=== PATIENT | female | born 1955 | race Caucasian/White ===

== ENCOUNTER → 2016-05-12 | Outpatient (CLI) | payer MEDICAID ==
--- NOTE | 2016-05-13 13:58 | MM ---
Reason for exam: screening (asymptomatic). Last mammogram was performed 1 year and 2 months ago. History: Patient is postmenopausal and is nulliparous. Physical Findings: A clinical breast exam by your physician is recommended on an annual basis and results should be correlated with mammographic findings. MG 3D Screening Mammo W/Cad Bilateral CC and MLO view(s) were taken. Prior study comparison: March 16, 2015, bilateral MG 3d screening mammo w/cad. February 24, 2014, bilateral MG screening mammo w CAD. No significant changes when compared with prior studies. ASSESSMENT: Benign, BI-RAD 2 RECOMMENDATION: Routine screening mammogram of both breasts in 1 year.
== END | disposition home or self-care (01) ==
LOC: RADMAMWWP 07:40
PROVIDERS: ATTEND Obstetrics & Gynecology
DX: Z12.31 Encounter for screening mammogram for malignant neoplasm of breast (principal)
CPT/HCPCS: 77063; G0202

== ENCOUNTER → 2016-11-20 | Outpatient (CLI) | payer MEDICAID ==
[2016-11-20 14:51] LABS: Anion Gap 10 mmol/L; Blood Urea Nitrogen 18 mg/dL (7-17); Calcium 9.8 mg/dL (8.4-10.2); Carbon Dioxide 29 mmol/L (22-30); Chloride 101 mmol/L (98-107); Glucose 88 mg/dL (74-99); Non-African American GFR(MDRD) >60 (>60 ml/min/1.73 sqM); Potassium 4.8 mmol/L (3.5-5.1); Sodium 140 mmol/L (137-145)
[2016-11-21 12:56] LABS: Hemoglobin A1C 6.7 % (4.2-6.1)
== END | disposition home or self-care (01) ==
LOC: LABWHC1 14:08
PROVIDERS: ATTEND Family Medicine
DX: E11.65 Type 2 diabetes mellitus with hyperglycemia (principal)
CPT/HCPCS: 36415; 80048; 83036

== ENCOUNTER → 2017-07-21 | Outpatient (CLI) | payer MEDICAID ==
[2017-07-21 15:48] VITALS: BP 165/75; PULSE 76; TEMP 97.4; BMI 30.9
--- NOTE | 2017-07-21 16:02 | P.HPOB ---
History of Present Illness H&P Date: 07/21/17 Chief Complaint: The patient is here for her routine annual gynecologic exam. This is a 61-year-old G0 with an LMP of 2007. The patient is here to establish with this office. She is without gynecologic complaints and denies any post menopausal bleeding. Review of Systems The patient's weight has been stable over the last year. She denies respiratory , cardiac, or G.I. problems. 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 Past Surgical History: Tonsillectomy Additional Past Surgical History / Comment(s): Colonoscopy 2009. Past Psychological History: No Psychological Hx Reported Additional History: The patient a single and has not been sexually active. She works at [employer]. - Past Family History Father Family Medical History: Diabetes Mellitus Medications and Allergies Home Medications Medication Instructions Recorded Confirmed Type sitaGLIPtin PHOS/metFORMIN HCL 1 each PO BID 06/06/14 06/07/14 History [Janumet 50-500 mg Tablet] Acetaminophen-Codeine 300-30mg 1 tab PO Q4H PRN #10 tablet 06/07/14 Rx [Tylenol #3] Aspirin [Adult Low Dose Aspirin EC] tab PO DAILY 07/21/17 History Calcium Carb-Vit D 250Mg-125Un tab PO DAILY 07/21/17 History [Oscal 250+D] Calcium Carb-Vit D 500Mg-200Un tab PO DAILY 07/21/17 History [Oscal 500+D] Glucosam/Chond/Hyalu/Cf Borate tab PO DAILY 07/21/17 History [Move Free Joint Health Tablet] Lisinopril [Zestril] tab PO DAILY 07/21/17 History Multivitamin [Multivitamins Adult tab PO DAILY 07/21/17 History Gummies] Simvastatin [Zocor] tab PO HS 07/21/17 History Vit A/Vit C/Vit E/Zinc/Copper cap PO BID 07/21/17 History [ICAPS SOFTGEL] glipiZIDE [Glucotrol] tab PO BID 07/21/17 History metFORMIN HCL tab PO BID 07/21/17 History sitaGLIPtin [Januvia] tab PO DAILY 07/21/17 History Allergies Allergy/AdvReac Type Severity Reaction Status Date / Time Penicillins Allergy Rash/Hives Verified 07/21/17 15:24 Exam - Vital Signs Vital signs: Blood pressure 165/75, repeat blood pressure 144/70, height 5'2", weight 169 pounds, BMI 30.9, temperature 97.4, pulse 76. This is a well-developed well-nourished white female who is alert and oriented times 3 in no acute distress. HEENT: Within normal limits. NECK: Supple without mass or thyromegaly. CHEST AND LUNGS: Clear to auscultation. HEART: Regular rate and rhythm. BREASTS: Are without mass or discharge. AXILLARY EXAM: Negative for adenopathy. BACK: Negative for CVA tenderness. ABDOMEN: Soft, nontender, without palpable masses. PELVIC EXAM: Normal external genitalia with mild atrophy. Cervix and vagina appear normal with mild atrophy. There is no unusual discharge. There is no evidence of prolapse. The uterus is midposition, nongravid size and nontender. There are no palpable adnexal masses or tenderness. RECTAL EXAM: rectovaginal exam is negative for mass or tenderness and is negative for occult blood. EXTREMITIES: Nontender. IMPRESSION: 1. 61-year-old menopausal female with normal gynecologic exam. 2. Elevated blood pressure without history of chronic hypertension. PLAN: 1. Pap smear was performed. 2. Self breast awareness was discussed. 3. Screening mammogram is due and in order slip was given to the patient for this. 4. Her elevated blood pressure was discussed with the patient. I have recommended self blood pressure testing on a regular basis and she is to follow up with Dr. Grove for blood pressure elevations. 5. Osteoporosis prevention was discussed. She has had normal bone density testing done about 3 to 5 years ago per the patient. I have recommended repeating the bone density test approximately 5-6 years after her last one. 6. She will return in one year.
== END | disposition home or self-care (01) ==
LOC: WWCWWP 14:28
PROVIDERS: ATTEND Obstetrics & Gynecology
DX: Z01.419 Encounter for gynecological examination (general) (routine) without abnormal findings (principal); Z53.9 Procedure and treatment not carried out, unspecified reason

== ENCOUNTER → 2017-09-24 | Outpatient (CLI) | payer MEDICAID ==
--- NOTE | 2017-09-25 07:23 | MM ---
Reason for exam: screening (asymptomatic). Last mammogram was performed 1 year and 4 months ago. History: Patient is postmenopausal and is nulliparous. Physical Findings: A clinical breast exam by your physician is recommended on an annual basis and results should be correlated with mammographic findings. MG 3D Screening Mammo W/Cad Bilateral CC and MLO view(s) were taken. Prior study comparison: May 12, 2016, bilateral MG 3d screening mammo w/cad. March 16, 2015, bilateral MG 3d screening mammo w/cad. The breast tissue is heterogeneously dense. This may lower the sensitivity of mammography. Benign appearing bilateral calcifications. No suspicious abnormality. No significant changes when compared with prior studies. ASSESSMENT: Benign, BI-RAD 2 RECOMMENDATION: Routine screening mammogram of both breasts in 1 year.
== END | disposition home or self-care (01) ==
LOC: RADMAMWWP 08-24 09:12
PROVIDERS: ATTEND Obstetrics & Gynecology
DX: Z12.31 Encounter for screening mammogram for malignant neoplasm of breast (principal)
CPT/HCPCS: 77063; 77067

== ENCOUNTER → 2018-09-07 | Outpatient (CLI) | payer MEDICAID ==
[2018-09-07 08:04] VITALS: BP 160/80; PULSE 86; RESP 16; TEMP 98; BMI 32.7
--- NOTE | 2018-09-07 08:39 | P.HPOB ---
History of Present Illness H&P Date: 09/07/18 Chief Complaint: The patient is here for her routine gynecologic exam. This is a 62-year-old G0 with an LMP of 2007. The patient is without gynecologic complaints and denies any postmenopausal bleeding. Review of Systems The patient has gained 10 pounds over the last year. She denies respiratory, cardiac, or G.I. problems. Past Medical History Past Medical History: Diabetes Mellitus, Hyperlipidemia, Hypertension Additional Past Medical History / Comment(s): Type II diabetes. Past [employer] history: she has no history of STDs. History of Any Multi-Drug Resistant Organisms: None Reported Past Surgical History: Tonsillectomy Additional Past Surgical History / Comment(s): Colonoscopy 2009. Past Psychological History: No Psychological Hx Reported Smoking Status: Never smoker Past Alcohol Use History: None Reported Past Drug Use History: None Reported Additional History: The patient is single and has not been sexually active. She works at [employer] at the [employer]. - Past Family History Father Family Medical History: Diabetes Mellitus Mother Family Medical History: Cancer Additional Family Medical History / Comment(s): Breast cancer. Medications and Allergies Home Medications Medication Instructions Recorded Confirmed Type Aspirin [Adult Low Dose Aspirin EC] 1 tab PO DAILY 07/21/17 09/07/18 History Calcium Carb-Vit D 500Mg-200Un 1 tab PO DAILY 07/21/17 09/07/18 History [Oscal 500+D] Glucosam/Chond/Hyalu/Cf Borate 1 tab PO DAILY 07/21/17 09/07/18 History [Move Free Joint Health Tablet] Lisinopril [Zestril] 1 tab PO DAILY 07/21/17 09/07/18 History Multivitamin [Multivitamins Adult 1 tab PO DAILY 07/21/17 09/07/18 History Gummies] Simvastatin [Zocor] 1 tab PO HS 07/21/17 09/07/18 History Vit A/Vit C/Vit E/Zinc/Copper 1 cap PO BID 07/21/17 09/07/18 History [ICAPS SOFTGEL] glipiZIDE [Glucotrol] 1 tab PO BID 07/21/17 09/07/18 History metFORMIN HCL 1 tab PO BID 07/21/17 09/07/18 History Allergies Allergy/AdvReac Type Severity Reaction Status Date / Time Penicillins Allergy Rash/Hives Verified 09/07/18 08:03 Exam Vital Signs Temp Pulse Resp BP Pulse Ox 09/07/18 07:57 98.0 F 86 16 160/80 94 L Intake and Output 09/06/18 09/07/18 09/07/18 22:59 06:59 14:59 Other: Weight 81.193 kg Height 5'2", weight 179 pounds, BMI 32.7. This is a well-developed well-nourished white female who is alert and oriented times 3 in no acute distress. HEENT: Within normal limits. NECK: Supple without mass or thyromegaly. CHEST AND LUNGS: Clear to auscultation. HEART: Regular rate and rhythm. BREASTS: Are without mass or discharge. AXILLARY EXAM: Negative for adenopathy. BACK: Negative for CVA tenderness. ABDOMEN: Soft, nontender, without palpable masses. PELVIC EXAM: Normal external genitalia with mild atrophy. Cervix and vagina appear normal with mild atrophy. There is no unusual discharge. There is no evidence of prolapse. The uterus is midposition, nongravid size and nontender. There are no palpable adnexal masses or tenderness. RECTAL EXAM: rectovaginal exam is negative for mass or tenderness and is negative for occult blood. EXTREMITIES: Nontender. IMPRESSION: 1. 62-year-old menopausal female with normal gynecologic exam. 2. Elevated blood pressure. The patient states she has not taken her lisinopril today. PLAN: 1. Pap smear was deferred since she had a normal one on 07/21/2017. 2. Self breast awareness was discussed with the patient. 3. Screening mammogram will be due after 09/24/2017. The order slip was given to the patient for this. 4. Osteoporosis prevention was discussed. I have stressed the importance of adequate calcium, vitamin D and regular exercise. Recommended amounts of calcium and vitamin D were also discussed. Her last test was more than 5 years ago. I have recommended that she redo the bone density testing and the order slip was given to the patient for this. She will try to have this done on the day of her mammogram. 5. I recommended that she check your blood pressure on her own on a regular basis. She is to follow up with Dr. Grove for blood pressure elevations. 6.She was advised to return in one year for her annual well woman exam.
== END | disposition home or self-care (01) ==
LOC: WWCWWP 07:49
PROVIDERS: ATTEND Obstetrics & Gynecology
DX: Z53.9 Procedure and treatment not carried out, unspecified reason (principal)

== ENCOUNTER → 2018-10-05 | Outpatient (CLI) | payer MEDICAID ==
--- NOTE | 2018-10-05 11:57 | BD ---
EXAMINATION TYPE: Axial Bone Density DATE OF EXAM: 10/05/2018 COMPARISON: 2008 CLINICAL HISTORY: post menopausal, Z 78.0 Height: 5'3 Weight: 177 FRAX RISK QUESTIONS: Secondary Osteoporosis: RISK FACTORS HISTORY OF: Postmenopausal woman: y MEDICATIONS: Additional Medications: cholesterol, diabetes 2 Additional History: EXAM MEASUREMENTS: Bone mineral densitometry was performed using the [employer] System. Bone mineral density as measured about the Lumbar spine is: ----- L1-L4(G/cm2): 1.258 T Score Values are as follows: ----- L2: 0.0 ----- L3: 1.6 ----- L4: 1.2 ----- L1-L4: 0.6 Bone mineral density has: Increased 7.5% since study of: 01/22/2009 Bone mineral density about the R hip (g/cm2): 0.923 Bone mineral density about the L hip (g/cm2): 0.945 T Score values are as follows: -----R Neck: -0.8 -----L Neck: -0.7 -----R Total: 0.7 -----L Total: 0.2 Bone mineral density has: Increased 1.7% since study of: 01/22/2009 IMPRESSION: Normal (Values between +1 and -1 indicate normal bone mass). Consider repeating this study in 5 year s or sooner if there is some new clinical indication. NOTE: T-SCORE=SD OF THE YOUNG ADULT MEAN.
--- NOTE | 2018-10-05 18:01 | P.PN ---
Progress Note - Text Progress Note Date: 10/05/18 OUTPATIENT FOLLOW-UP NOTE TEST(S)/RESULTS: normal bone density test on 10/05/2018. METHOD OF NOTIFICATION: patient was notified by phone. PATIENT COMMENTS: the patient did have a mammogram today as well. DIAGNOSIS: normal bone density test. Mammogram results are pending. DISCUSSION: I have stressed the importance of continuing to get adequate calcium, vitamin D, and regular exercise. PLAN: repeat bone density testing in 6 years. Await mammogram results. She was advised to return in one year for her annual well woman exam.
--- NOTE | 2018-10-06 09:29 | MM ---
Reason for exam: screening (asymptomatic). Last mammogram was performed 1 year ago. History: Patient is postmenopausal and is nulliparous. Family history of breast cancer in mother at age 91. Physical Findings: A clinical breast exam by your physician is recommended on an annual basis and results should be correlated with mammographic findings. MG 3D Screening Mammo W/Cad Bilateral CC and MLO view(s) were taken. Prior study comparison: September 24, 2017, bilateral MG 3d screening mammo w/cad. May 12, 2016, bilateral MG 3d screening mammo w/cad. The breast tissue is heterogeneously dense. This may lower the sensitivity of mammography. No suspicious abnormality on the right. Left upper outer quadrant architectural distortion with central lucency appears as a scar or fat necrosis. Work up will be performed given no history provided of prior procedure or trauma. ASSESSMENT: Incomplete: need additional imaging evaluation, BI-RAD 0 RECOMMENDATION: Ultrasound of the left breast. (upper outer quadrant) [facility] will attempt to contact patient to return for ultrasound.
== END | disposition home or self-care (01) ==
LOC: RADMAMWWP 07:39
PROVIDERS: ATTEND Obstetrics & Gynecology
DX: Z12.31 Encounter for screening mammogram for malignant neoplasm of breast (principal); Z78.0 Asymptomatic menopausal state
CPT/HCPCS: 77063; 77067; 77080

== ENCOUNTER → 2018-10-07 | Outpatient (CLI) | payer MEDICAID ==
--- NOTE | 2018-10-07 14:50 | USB ---
Reason for exam: additional evaluation requested from abnormal screening. History: Patient is postmenopausal and is nulliparous. Family history of breast cancer in mother at age 91. Physical Findings: Nurse did not find any significant physical abnormalities on exam. US Breast Workup Limited LT Left limited breast ultrasound including focal area of concern, retroareolar and axilla demonstrates a 0.4 x 0.4 x 0.2cm oval, cystic lesion at 1 o'clock and a 1.9 x 2.7 x 1.2cm oval, axilla node, benign lymph node. These results were verbally communicated with the patient and result sheet given to the patient on 10/07/18. ASSESSMENT: Benign, BI-RAD 2 RECOMMENDATION: Return to routine screening mammogram schedule for both breasts.
== END | disposition home or self-care (01) ==
LOC: RADUSWWP 13:34
PROVIDERS: ATTEND Obstetrics & Gynecology
DX: R92.8 Other abnormal and inconclusive findings on diagnostic imaging of breast (principal)

== ENCOUNTER → 2019-03-30 | Outpatient (CLI) | payer MEDICAID ==
--- NOTE | 2019-03-30 13:06 | XR ---
EXAMINATION TYPE: XR shoulder complete LT DATE OF EXAM: 03/30/2019 CLINICAL HISTORY: Left shoulder pain with no known injury TECHNIQUE: 2 views of the left shoulder are obtained. COMPARISON: None. FINDINGS: There is no acute fracture/dislocation evident in the left shoulder. The acromioclavicula r and glenohumeral joint spaces appear aligned. Mild acromioclavicular arthropathy is seen with small marginal osteophytes. The visualized ribs are intact and unremarkable. IMPRESSION: There is no acute fracture or dislocation in the left shoulder. Mild acromioclavicular a rthropathy.
== END | disposition home or self-care (01) ==
LOC: RADXRMAIN 12:17
PROVIDERS: ATTEND Family Medicine
DX: M19.012 Primary osteoarthritis, left shoulder (principal)

== ENCOUNTER → 2019-10-25 | Outpatient (CLI) | payer MEDICAID ==
[2019-10-25 12:58] VITALS: BP 149/76; PULSE 70; RESP 18; TEMP 98.2
--- NOTE | 2019-10-25 13:37 | P.HPOB ---
History of Present Illness H&P Date: 10/25/19 Chief Complaint: The patient is here for her routine gynecologic exam and ma mmogram. This is a 63-year-old G0 with an LMP of 2007. The patient is without gynecologic complaints and denies any postmenopausal bleeding. Review of Systems The patient has lost 15 pounds over the last year. She states she has lost weight with dietary changes that she has made to help control her diabetes. She denies respiratory, cardiac, or G.I. problems. Past Medical History Past Medical History: Diabetes Mellitus, Hyperlipidemia, Hypertension Additional Past Medical History / Comment(s): Type II diabetes. 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 History of Any Multi-Drug Resistant Organisms: None Reported Past Surgical History: Tonsillectomy Additional Past Surgical History / Comment(s): Colonoscopy 2009. Past Psychological History: No Psychological Hx Reported Smoking Status: Never smoker Past Alcohol Use History: None Reported Past Drug Use History: None Reported Additional History: The patient is single and has not been sexually active. She works at [employer] at the [employer]. - Past Family History Father Family Medical History: Diabetes Mellitus Mother Family Medical History: Cancer Additional Family Medical History / Comment(s): Breast cancer. Medications and Allergies Home Medications Medication Instructions Recorded Confirmed Type Calcium Carb-Vit D 500Mg-200Un 1 tab PO DAILY 07/21/17 10/25/19 History [Oscal 500+D] Glucosam/Chond/Hyalu/Cf Borate 1 tab PO DAILY 07/21/17 10/25/19 History [Move Free Joint Health Tablet] Multivitamin [Multivitamins Adult 1 tab PO DAILY 07/21/17 10/25/19 History Gummies] Simvastatin [Zocor] 1 tab PO HS 07/21/17 10/25/19 History Vit A/Vit C/Vit E/Zinc/Copper 1 cap PO BID 07/21/17 10/25/19 History [ICAPS SOFTGEL] glipiZIDE [Glucotrol] 1 tab PO BID 07/21/17 10/25/19 History lisinopriL [Zestril] 1 tab PO DAILY 07/21/17 10/25/19 History metFORMIN HCL 1 tab PO BID 07/21/17 10/25/19 History Aspirin 81 mg PO DAILY 10/25/19 10/25/19 History Allergies Allergy/AdvReac Type Severity Reaction Status Date / Time Penicillins Allergy Rash/Hives Verified 10/25/19 12:51 Exam Vital Signs Temp Pulse Resp BP Pulse Ox 10/25/19 12:53 98.2 F 70 18 149/76 99 Intake and Output 10/24/19 10/25/19 10/25/19 22:59 06:59 14:59 Other: Weight 74.389 kg Height 5 feet 3 inches, weight 164 pounds, BMI 29.1. This is a well-developed well-nourished white female who is alert and oriented times 3 in no acute distress. HEENT: Within normal limits. NECK: Supple without mass or thyromegaly. CHEST AND LUNGS: Clear to auscultation. HEART: Regular rate and rhythm. BREASTS: Are without mass or discharge. AXILLARY EXAM: Negative for adenopathy. BACK: Negative for CVA tenderness. ABDOMEN: Soft, nontender, without palpable masses. PELVIC EXAM: Normal external genitalia with mild to moderate atrophy. Cervix and vagina appear normal with mild to moderate atrophy. There is no unusual discharge. There is no evidence of prolapse. The uterus is midposition, nongravid size and nontender. There are no palpable adnexal masses or tenderness. RECTAL EXAM: Rectovaginal exam is negative for mass or tenderness and is negative for occult blood. EXTREMITIES: Nontender. IMPRESSION: 1. 63-year-old menopausal female with normal gynecologic exam. PLAN: 1. Pap smear was performed. 2. Self breast awareness was discussed with the patient. 3. Screening mammogram will be done today. 4. Osteoporosis prevention was discussed. I have stressed the importance of adequate calcium, vitamin D and regular exercise. The patient states she has the sheet explaining how much calcium and vitamin D are recommended. Bone density test will be done in approximately 4-5 years. She had a normal one done last year. 5. I have recommended screening colonoscopy since it has been about 10 years since her last one. She will follow up with her PCP to arrange for this. 6. She was advised to return in one year for her annual well woman exam.
--- NOTE | 2019-10-27 09:22 | MM ---
Reason for exam: screening (asymptomatic). Last mammogram was performed 1 year and 1 month ago. History: Patient is postmenopausal and is nulliparous. Family history of breast cancer in mother at age 91. Physical Findings: A clinical breast exam by your physician is recommended on an annual basis and results should be correlated with mammographic findings. MG 3D Screening Mammo W/Cad Bilateral CC and MLO view(s) were taken. Prior study comparison: October 05, 2018, bilateral MG 3d screening mammo w/cad. September 24, 2017, bilateral MG 3d screening mammo w/cad. There are scattered fibroglandular densities. No significant changes when compared with prior studies. ASSESSMENT: Benign, BI-RAD 2 RECOMMENDATION: Routine screening mammogram of both breasts in 1 year.
== END | disposition home or self-care (01) ==
LOC: WWCWWP 12:37
PROVIDERS: ATTEND Obstetrics & Gynecology
DX: Z12.31 Encounter for screening mammogram for malignant neoplasm of breast (principal)
CPT/HCPCS: 77063; 77067

== ENCOUNTER 2020-04-10 07:04 | Day surgery (SDC) | payer MEDICAID ==
[2020-04-05 15:04] VITALS: BMI 30.2
[~2020-04-10 07:04] MED LIST: LACTATED RINGERS 1,000 ML IV SCH
[2020-04-10 07:29] VITALS: RESP 16; TEMP 98.2
[2020-04-10] MEDS ORDERED: LIDOCAINE 1% (10MG/ML) FOR IV START INTRADERMA ONE (07:40)
[2020-04-10 07:43] LABS: Glucose,Whole Blood 171 mg/dL (75-99)
[2020-04-10] MEDS ORDERED: PROPOFOL 10 MG/ML 20 ML VIAL IV ONE (08:12)
--- NOTE | 2020-04-10 08:14 | P.GSHP ---
History of Present Illness H&P Date: 04/10/20 Chief Complaint: Positive cologuard Patient here today for colonoscopy. She without complaints. No rectal bleeding or melena. Patient had a positive cologuard test however. No family history of colon cancer. Last colonoscopy 14 years ago. Past Medical History Past Medical History: Diabetes Mellitus, Hyperlipidemia, Hypertension Additional Past Medical History / Comment(s): Type II diabetes. History of Any Multi-Drug Resistant Organisms: None Reported Past Surgical History: Tonsillectomy Additional Past Surgical History / Comment(s): Colonoscopy 2009. Past Anesthesia/Blood Transfusion Reactions: No Reported Reaction Smoking Status: Never smoker - Past Family History Father Family Medical History: Diabetes Mellitus Mother Family Medical History: Cancer Additional Family Medical History / Comment(s): Breast cancer. Medications and Allergies Home Medications Medication Instructions Recorded Confirmed Type Calcium Carb-Vit D 500Mg-5Mcg 1 tab PO DAILY 07/21/17 04/10/20 History [Oscal 500+D] Glucosam/Chond/Hyalu/Cf Borate 1 tab PO DAILY 07/21/17 04/10/20 History [Move Free Joint Health Tablet] Multivitamin [Multivitamins Adult 1 tab PO DAILY 07/21/17 04/10/20 History Gummies] Simvastatin [Zocor] 10 mg PO HS 07/21/17 04/10/20 History Vit A/Vit C/Vit E/Zinc/Copper 1 cap PO BID 07/21/17 04/10/20 History [ICAPS SOFTGEL] glipiZIDE [Glucotrol] 5 mg PO BID 07/21/17 04/10/20 History lisinopriL [Zestril] 5 mg PO DAILY 07/21/17 04/10/20 History metFORMIN HCL 1,000 mg PO BID 07/21/17 04/10/20 History Aspirin 81 mg PO DAILY 10/25/19 04/10/20 History Allergies Allergy/AdvReac Type Severity Reaction Status Date / Time Penicillins Allergy Rash/Hives Verified 04/10/20 07:22 Surgical - Exam Vital Signs Temp Pulse Resp BP Pulse Ox 98.2 F 90 16 164/75 95 04/10/20 07:19 04/10/20 07:19 04/10/20 07:19 04/10/20 07:19 04/10/20 07:19 Physical exam: General: Well-developed, well-nourished HEENT: Normocephalic, sclerae nonicteric Abdomen: Nontender, nondistended Extremities: No edema Neuro: Alert and oriented Results - Labs Abnormal Lab Results - Last 24 Hours (Table) 04/10/20 Range/Units 07:37 POC Glucose (mg/dL) 171 H (75-99) mg/dL Assessment and Plan (1) Positive colorectal cancer screening using Cologuard test Narrative/Plan: Will proceed with colonoscopy Current Visit: Yes Status: Acute Code(s): R19.5 - OTHER FECAL ABNORMALITIES SNOMED Code(s): 056943725
--- NOTE | 2020-04-10 08:30 | P.PCN ---
Date of Procedure: 04/10/20 Procedure(s) Performed: PREOPERATIVE DIAGNOSIS: Positive cologuard POSTOPERATIVE DIAGNOSIS: Diverticulosis PROCEDURE: Colonoscopy ANESTHESIA: MAC SURGEON: Joselo Randhawa M.D. SPECIMENS: None ENDOSCOPIC PROCEDURE: The patient was placed on the endoscopy table in the left decubitus position. The Olympus colonoscope was inserted into the anus and passed under direct visualization to the base of the cecum. The appendiceal orifice was visualized. From that point the scope was slowly withdrawn inspecting all surfaces carefully. There were no neoplastic inflammatory or polypoid lesions throughout the cecum, ascending, transverse, descending, sigmoid and rectum. There was mild to moderate scattered diverticulosis noted throughout the colon. Digital rectal examination was normal. The patient was taken to the recovery room in stable condition per anesthesia guidelines. RECOMMENDATIONS: Resume diet. Follow-up colonoscopy in years.
[2020-04-10 08:47] VITALS: BP 147/66; PULSE 56
== END 2020-04-10 09:06 | disposition home or self-care (01) ==
LOC: ORWHC2ENDO 07:04
PROVIDERS: ATTEND Surgery
DX: K57.30 Diverticulosis of large intestine without perforation or abscess without bleeding (principal); E11.9 Type 2 diabetes mellitus without complications; E78.5 Hyperlipidemia, unspecified; I10 Essential (primary) hypertension; Z79.84 Long term (current) use of oral hypoglycemic drugs; Z79.82 Long term (current) use of aspirin; Z79.899 Other long term (current) drug therapy; Z88.0 Allergy status to penicillin; Z90.89 Acquired absence of other organs; Z98.890 Other specified postprocedural states; Z83.3 Family history of diabetes mellitus; Z80.3 Family history of malignant neoplasm of breast
CPT/HCPCS: 45378; J2704

== ENCOUNTER → 2020-08-25 | Outpatient (CLI) | payer MEDICAID ==
[2020-08-25 17:07] LABS: Basophils # (A) 0.05 X 10*3/uL (0.00-0.10); Basophils % (A) 1.1 %; Eosinophils # (A) 0.27 X 10*3/uL (0.04-0.35); HCT 39.7 % (37.2-46.3); HGB 12.7 g/dL (12.0-15.0); Lymphocytes # (A) 1.31 X 10*3/uL (0.90-5.00); Lymphocytes % (A) 29.2 %; MCH 28.9 pg (27.0-32.0); MCV 90.4 fL (80.0-97.0); Mean Platelet Volume 9.8 fL (9.5-12.2); Monocytes # (A) 0.37 X 10*3/uL (0.20-1.00); Monocytes % (A) 8.3 %; Neutrophils # (A) 2.47 X 10*3/uL (1.80-7.70); Neutrophils % (A) 55.2 %; Platelet Count 320 X 10*3/uL (140-440); RBC 4.39 X 10*6/uL (4.10-5.20); RDW 12.7 % (11.5-14.5); WBC 4.48 X 10*3/uL (4.50-10.00)
[2020-08-25 17:10] LABS: African American GFR (CKD) 78.9 (60.0-200.0); Albumin 4.4 g/dL (3.80-4.90); Albumin/Globulin Ratio 1.91 (1.60-3.17); Anion Gap 6.6 mmol/L (4.00-12.00); Calcium 9.4 mg/dL (8.7-10.3); Carbon Dioxide 30.4 mmol/L (21.6-31.8); Chol/HDL Ratio 2.81; Globulin 2.3 g/dL (1.6-3.3); Potassium 5.2 mmol/L (3.5-5.5); Total Bilirubin 0.5 mg/dL (0.3-1.2); Total Protein 6.7 g/dL (6.2-8.2)
[2020-08-25 21:29] LABS: Hemoglobin A1C 7.2 % (4.0-6.0)
== END | disposition home or self-care (01) ==
LOC: LABWHC1 08:59
PROVIDERS: ATTEND Family Medicine
DX: Z00.00 Encounter for general adult medical examination without abnormal findings (principal); E11.65 Type 2 diabetes mellitus with hyperglycemia
CPT/HCPCS: 36415; 80053; 80061; 83036; 85025

== ENCOUNTER → 2020-11-06 | Outpatient (CLI) | payer MEDICAID ==
[2020-11-06 16:31] VITALS: BP 173/71; PULSE 67; RESP 18; TEMP 97.9
--- NOTE | 2020-11-06 17:21 | P.HPOB ---
History of Present Illness H&P Date: 11/06/20 Chief Complaint: The patient is here for her routine gynecologic exam and ma mmogram. This is a 64-year-old G0 with an LMP of 2007. The patient is without gynecologic complaints and denies any postmenopausal bleeding. Review of Systems The patient has lost 5 pounds over the last year. She denies respiratory, cardiac, or G.I. problems. Past Medical History Past Medical History: Diabetes Mellitus, Hyperlipidemia, Hypertension Additional Past Medical History / Comment(s): Type II diabetes. 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 History of Any Multi-Drug Resistant Organisms: None Reported Past Surgical History: Tonsillectomy Additional Past Surgical History / Comment(s): Colonoscopy 2020(next after 10yr). Past Anesthesia/Blood Transfusion Reactions: No Reported Reaction Past Psychological History: No Psychological Hx Reported Smoking Status: Never smoker Past Alcohol Use History: None Reported Past Drug Use History: None Reported Additional History: The patient is single and is not seeing anybody at this time. She states she has not been sexually active. She works at [email or web address] at the [employer]. - Past Family History Father Family Medical History: Diabetes Mellitus Mother Family Medical History: Cancer Additional Family Medical History / Comment(s): Breast cancer. Medications and Allergies Home Medications and Allergies Comment(s): She also states she is on lisinopril, 1 tablet daily. Home Medications Medication Instructions Recorded Confirmed Type Calcium Carb-Vit D 500Mg-5Mcg 1 tab PO DAILY 07/21/17 11/06/20 History [Oscal 500+D] Glucosam/Chond/Hyalu/Cf Borate 1 tab PO DAILY 07/21/17 11/06/20 History [Move Free Joint Health Tablet] Multivitamin [Multivitamins Adult 1 tab PO DAILY 07/21/17 11/06/20 History Gummies] Simvastatin [Zocor] 10 mg PO HS 07/21/17 11/06/20 History Vit A/Vit C/Vit E/Zinc/Copper 1 cap PO BID 07/21/17 11/06/20 History [ICAPS SOFTGEL] glipiZIDE [Glucotrol] 5 mg PO BID 07/21/17 11/06/20 History lisinopriL [Zestril] 5 mg PO DAILY 07/21/17 11/06/20 History metFORMIN HCL [Glucophage] 1,000 mg PO BID 07/21/17 11/06/20 History Aspirin 81 mg PO DAILY 10/25/19 11/06/20 History Cinnamon Bark [Cinnamon] 2,000 mg PO DAILY 11/06/20 11/06/20 History Allergies Allergy/AdvReac Type Severity Reaction Status Date / Time Penicillins Allergy Rash/Hives Verified 11/06/20 16:28 Exam Vital Signs Temp Pulse Resp BP Pulse Ox 11/06/20 16:28 97.9 F 67 18 173/71 99 Intake and Output 11/06/20 11/06/20 11/06/20 06:59 14:59 22:59 Other: Weight 72.121 kg Height 5 feet 3-1/2 inches, weight 159 pounds, BMI 27.7. This is a well-developed well-nourished white female who is alert and oriented times 3 in no acute distress. HEENT: Within normal limits. NECK: Supple without mass or thyromegaly. CHEST AND LUNGS: Clear to auscultation. HEART: Regular rate and rhythm. BREASTS: Are without mass or discharge. AXILLARY EXAM: Negative for adenopathy. BACK: Negative for CVA tenderness. ABDOMEN: Soft, nontender, without palpable masses. PELVIC EXAM: Normal external genitalia with mild atrophy. Cervix and vagina appear normal with mild atrophy. There is no unusual discharge. There is no evidence of prolapse. The uterus is midposition, nongravid size and nontender. There are no palpable adnexal masses or tenderness. RECTAL EXAM: Rectovaginal exam is negative for mass or tenderness and is negative for occult blood. EXTREMITIES: Nontender. IMPRESSION: 1. 64-year-old menopausal female with normal gynecologic exam. 2. Elevated blood pressure. The patient states she has not been diagnosed with hypertension. She states she is on lisinopril for an unknown indication. PLAN: 1. Pap smear was deferred since she had a normal one on 10/25/2019. 2. Self breast awareness was discussed with the patient. We have also discussed symptoms associated with inflammatory breast cancer. 3. Screening mammogram has been done today. 4. Osteoporosis prevention was discussed. I have stressed the importance of adequate calcium, vitamin D and regular exercise. Recommended amounts of calcium and vitamin D were also discussed. 5. We have discussed her elevated blood pressure today. I have recommended that she check her own blood pressures on a regular basis and follow-up with her PCP for blood pressure elevations. I have also recommended that she discuss the indication for her lisinopril and Zocor. She states she is unaware of the diagnosis of hypertension or elevated cholesterol. She understands that poorly controlled high blood pressure, especially with the diagnosis of type 2 diabetes, can greatly increase the risk for cardiovascular disease, NV and stroke. 6. She has completed her Covid vaccination series. 7. She was advised to return in one year for her annual well woman exam.
--- NOTE | 2020-11-08 12:09 | MM ---
Reason for exam: screening (asymptomatic). Last mammogram was performed 1 year ago. History: Patient is postmenopausal and is nulliparous. Family history of breast cancer in mother at age 91. Physical Findings: A clinical breast exam by your physician is recommended on an annual basis and results should be correlated with mammographic findings. MG 3D Screening Mammo W/Cad Bilateral CC and MLO view(s) were taken. Prior study comparison: October 25, 2019, bilateral MG 3d screening mammo w/cad. October 05, 2018, bilateral MG 3d screening mammo w/cad. September 24, 2017, bilateral MG 3d screening mammo w/cad. The breast tissue is heterogeneously dense. This may lower the sensitivity of mammography. No significant changes when compared with prior studies. ASSESSMENT: Benign, BI-RAD 2 RECOMMENDATION: Routine screening mammogram of both breasts in 1 year.
== END | disposition home or self-care (01) ==
LOC: RADMAMWWP 15:30
PROVIDERS: ATTEND Obstetrics & Gynecology
DX: Z12.31 Encounter for screening mammogram for malignant neoplasm of breast (principal); Z78.0 Asymptomatic menopausal state; Z80.3 Family history of malignant neoplasm of breast
CPT/HCPCS: 77063; 77067

== ENCOUNTER → 2021-09-07 | Outpatient (CLI) | payer MEDICAID ==
[2021-09-07 11:06] LABS: Basophils # (A) 0.06 X 10*3/uL (0.00-0.10); Basophils % (A) 1.3 %; Eosinophils # (A) 0.42 X 10*3/uL (0.04-0.35); Eosinophils % (A) 9.2 %; HCT 38.5 % (37.2-46.3); HGB 12.3 g/dL (12.0-15.0); Immature Grans, Automated 0.2 %; Lymphocytes # (A) 1.34 X 10*3/uL (0.90-5.00); Lymphocytes % (A) 29.5 %; MCH 28.5 pg (27.0-32.0); MCHC 31.9 g/dL (32.0-37.0); MCV 89.3 fL (80.0-97.0); Mean Platelet Volume 9.8 fL (9.5-12.2); Monocytes # (A) 0.37 X 10*3/uL (0.20-1.00); Monocytes % (A) 8.1 %; NRBC Per 100 WBC 0 /100 WBCS (0.0-0.0); Neutrophils # (A) 2.35 X 10*3/uL (1.80-7.70); Neutrophils % (A) 51.7 %; Platelet Count 289 X 10*3/uL (140-440); RBC 4.31 X 10*6/uL (4.10-5.20); RDW 12.9 % (11.5-14.5); WBC 4.55 X 10*3/uL (4.50-10.00)
[2021-09-07 11:47] LABS: Appearance,Urine Clear (Clear); Bilirubin,Urine Negative (Negative); Blood,Urine Negative (Negative); Color,Urine Yellow (Yellow); Ketones,Urine Trace mg/dL (Negative); Nitrite,Urine Negative (Negative); Specific Gravity,Urine 1.019 (1.001-1.030); Urobilinogen,Urine 0.2 (0.2,1.0)
[2021-09-07 11:54] LABS: Bacteria,Urine None Seen /HPF (None Seen)
[2021-09-07 11:58] LABS: ALT 24 U/L (8-44); AST 24 U/L (13-35); African American GFR (CKD) 78.3 (60.0-200.0); Albumin 4.3 g/dL (3.8-4.9); Albumin/Globulin Ratio 1.95 (1.60-3.17); Alkaline Phosphatase 102 U/L (41-126); Blood Urea Nitrogen 16.2 mg/dL (9.0-27.0); Calcium 9.4 mg/dL (8.7-10.3); Carbon Dioxide 27.6 mmol/L (20.0-27.5); Chloride 100 mmol/L (96-109); Chol/HDL Ratio 2.74 Ratio; Globulin 2.2 g/dL (1.6-3.3); Glucose 169 mg/dL (70-110); LDL Cholesterol,Calculated 74.3 mg/dL (0.0-131.0); Non-African American GFR(CKD) 67.6 (60.0-200.0); Potassium 5.2 mmol/L (3.5-5.5); Sodium 138 mmol/L (135-145); Total Protein 6.5 g/dL (6.2-8.2)
== END | disposition home or self-care (01) ==
LOC: LABWHC1 07:28
PROVIDERS: ATTEND Family Medicine
DX: Z00.00 Encounter for general adult medical examination without abnormal findings (principal); E66.9 Obesity, unspecified; E11.65 Type 2 diabetes mellitus with hyperglycemia
CPT/HCPCS: 36415; 80053; 80061; 81001; 83036; 85025

== ENCOUNTER → 2021-12-10 | Outpatient (CLI) | payer MEDICAID ==
[2021-12-10 15:32] VITALS: BP 154/76; PULSE 81; RESP 17; TEMP 97.8
--- NOTE | 2021-12-10 16:02 | P.HPOB ---
History of Present Illness H&P Date: 12/10/21 Chief Complaint: The patient is here for her routine gynecologic exam and ma mmogram. This is a 65-year-old G0 with an LMP of 2007. The patient is without gynecologic complaints and denies any postmenopausal bleeding. Review of Systems The patient has gained 4 pounds over the last year. She denies respiratory, cardiac, or G.I. problems. Past Medical History Past Medical History: Diabetes Mellitus, Hyperlipidemia, Hypertension Additional Past Medical History / Comment(s): Type II diabetes. 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 History of Any Multi-Drug Resistant Organisms: None Reported Past Surgical History: Tonsillectomy Additional Past Surgical History / Comment(s): Colonoscopy 2020(next after 10yr). Past Anesthesia/Blood Transfusion Reactions: No Reported Reaction Past Psychological History: No Psychological Hx Reported Smoking Status: Never smoker Past Alcohol Use History: None Reported Past Drug Use History: None Reported Additional History: The patient is single and is not seeing anybody at this time and is currently not sexually active. She works at [employer] at the [employer]. - Past Family History Father Family Medical History: Diabetes Mellitus Mother Family Medical History: Cancer Additional Family Medical History / Comment(s): Breast cancer. Medications and Allergies Home Medications Medication Instructions Recorded Confirmed Type Calcium Carb-Vit D 500Mg-5Mcg 1 tab PO DAILY 07/21/17 12/10/21 History [Oscal 500+D] Glucosam/Chond/Hyalu/Cf Borate 1 tab PO DAILY 07/21/17 12/10/21 History [Move Free Joint Health Tablet] Multivitamin [Multivitamins Adult 1 tab PO DAILY 07/21/17 12/10/21 History Gummies] Simvastatin [Zocor] 10 mg PO HS 07/21/17 12/10/21 History Vit A/Vit C/Vit E/Zinc/Copper 1 cap PO BID 07/21/17 12/10/21 History [ICAPS SOFTGEL] glipiZIDE [Glucotrol] 5 mg PO BID 07/21/17 12/10/21 History lisinopriL [Zestril] 5 mg PO DAILY 07/21/17 12/10/21 History metFORMIN HCL [Glucophage] 1,000 mg PO BID 07/21/17 12/10/21 History Aspirin 81 mg PO DAILY 10/25/19 12/10/21 History Cinnamon Bark [Cinnamon] 2,000 mg PO DAILY 11/06/20 12/10/21 History Allergies Allergy/AdvReac Type Severity Reaction Status Date / Time Penicillins Allergy Rash/Hives Verified 12/10/21 15:26 Exam Vital Signs Temp Pulse Resp BP Pulse Ox 12/10/21 15:30 97.8 F 81 17 154/76 97 Intake and Output 12/10/21 12/10/21 12/10/21 06:59 14:59 22:59 Other: Weight 73.936 kg Height 5 feet 2 inches, weight 163 pounds, BMI 29.8. This is a well-developed well-nourished white female who is alert and oriented times 3 in no acute distress. HEENT: Within normal limits. NECK: Supple without mass or thyromegaly. CHEST AND LUNGS: Clear to auscultation. HEART: Regular rate and rhythm. BREASTS: Are without mass or discharge. AXILLARY EXAM: Negative for adenopathy. BACK: Negative for CVA tenderness. ABDOMEN: Soft, nontender, without palpable masses. PELVIC EXAM: Normal external genitalia with mild to moderate atrophy. Cervix and vagina appear normal with mild to moderate atrophy. The cervix is somewhat stenotic secondary to atrophy and nulliparity. There is no unusual discharge. There is no evidence of prolapse. The uterus is slightly retroverted, nongravid size and nontender. There are no palpable adnexal masses or tenderness. RECTAL EXAM: Rectovaginal exam is negative for mass or tenderness and is negative for occult blood. EXTREMITIES: Nontender. IMPRESSION: 1. 65-year-old menopausal female with normal gynecologic exam. 2. Elevated blood pressure with history of chronic hypertension. PLAN: 1. Pap smear test was performed. 2. Self breast awareness was discussed with the patient. We have also discussed symptoms associated with inflammatory breast cancer. 3. Screening mammogram will be done today. 4. I have recommended that she check her own blood pressures at home and follow-up with her PCP for blood pressure elevations. 5. Osteoporosis prevention was discussed. I have stressed the importance of adequate calcium, vitamin D and regular exercise. Recommended amounts of calcium and vitamin D were also discussed. She had a normal bone density test done on 10/05/2018. We will plan on repeating this in approximately 3 years. 6. She has completed her Covid vaccination series and has received 2 boosters. 7. She was advised to return in one year for her annual well woman exam.
--- NOTE | 2021-12-11 20:59 | MM ---
Reason for Exam: Screening (asymptomatic). Last mammogram was performed 1 year(s) and 1 month(s) ago. Patient History: Menarche at age 14. Patient has no children. Postmenopausal. Mother had breast cancer, age 91. Risk Values: Yaima 5 year model risk: 3.2%. NCI Lifetime model risk: 12.4%. Prior Study Comparison: 10/05/2018 Bilateral Screening Mammogram, [facility]. 10/25/2019 Bilateral Screening Mammogram, [facility]. 11/06/2020 Bilateral Screening Mammogram, [facility]. Tissue Density: The breast tissue is heterogeneously dense. This may lower the sensitivity of mammography. Findings: Analyzed By CAD. Subtle chronic nodularity in both breasts remains unchanged, better depicted on 3-D images. No significant change from prior exams. Overall Assessment: Benign, BI-RAD 2 Management: Screening Mammogram of both breasts in 1 year. 1. Patient should continue monthly self breast exams. 2. A clinical breast exam by your physician is recommended on an annual basis. 3. This exam should not preclude additional follow-up of suspicious palpable abnormalities. Electronically signed and approved by: Mariaelena Glass M.D. Radiologist
== END ==
LOC: WWCWWP 15:14
PROVIDERS: ATTEND Obstetrics & Gynecology
DX: Z01.419 Encounter for gynecological examination (general) (routine) without abnormal findings (principal); Z12.31 Encounter for screening mammogram for malignant neoplasm of breast; I10 Essential (primary) hypertension; Z78.0 Asymptomatic menopausal state; Z88.0 Allergy status to penicillin; E66.9 Obesity, unspecified; Z68.29 Body mass index [BMI] 29.0-29.9, adult
CPT/HCPCS: 77063; 77067

== ENCOUNTER → 2023-02-26 | Outpatient (CLI) | payer MEDICAID ==
--- NOTE | 2023-02-27 13:23 | MM ---
Reason for Exam: Screening (asymptomatic). Last mammogram was performed 1 year(s) and 2 month(s) ago. Patient History: Menarche at age 14. Patient has no children. Postmenopausal. Mother had breast cancer, age 91. Risk Values: Yaima 5 year model risk: 3.3%. NCI Lifetime model risk: 11.5%. Prior Study Comparison: 10/25/2019 Bilateral Screening Mammogram, [facility]. 11/06/2020 Bilateral Screening Mammogram, [facility]. 12/10/2021 Bilateral MG 3D screening mammo w/cad, [facility]. Tissue Density: The breast tissue is heterogeneously dense. This may lower the sensitivity of mammography. Findings: Analyzed By CAD. There is no suspicious group of microcalcifications or new suspicious mass. Overall Assessment: Benign, BI-RAD 2 Management: Screening Mammogram of both breasts in [address] [facility] will attempt to contact patient to return for supplemental views and ultrasound if indicated. Patient should continue monthly self-breast exams. A clinical breast exam by your physician is recommended on an annual basis. This exam should not preclude additional follow-up of suspicious palpable abnormalities. Note on Yaima scores and lifetime risk: 1. A Yaima score greater than 3% is considered moderate risk. If this is the case, consider specialist referral to assess eligibility for a risk reducing agent. 2. If overall lifetime risk for the development of breast cancer is 20% or higher, the patient may qualify for future screening with alternating mammogram and breast MRI. Electronically signed and approved by: Jay Mendez DO
== END | disposition home or self-care (01) ==
LOC: RADMAMWWP 11:41
PROVIDERS: ATTEND Family Medicine
DX: Z12.31 Encounter for screening mammogram for malignant neoplasm of breast (principal); Z80.3 Family history of malignant neoplasm of breast; Z78.0 Asymptomatic menopausal state
CPT/HCPCS: 77063; 77067

== ENCOUNTER → 2024-03-24 | Outpatient (CLI) | payer MEDICAID, MEDICARE ==
--- NOTE | 2024-03-24 15:00 | MM ---
Reason for Exam: Screening (asymptomatic). Last mammogram was performed 1 year(s) and 1 month(s) ago. Patient History: Menarche at age 14. Patient has no children. Postmenopausal. Mother had breast cancer, age 91. Risk Values: Yaima 5 year model risk: 3.3%. NCI Lifetime model risk: 11.1%. Prior Study Comparison: 11/06/2020 Bilateral Screening Mammogram, [facility]. 12/10/2021 Bilateral MG 3D screening mammo w/cad, [facility]. 02/26/2023 Bilateral MG 3D screening mammo w/cad, [facility]. Tissue Density: The breasts are heterogeneously dense, which may obscure small masses. Findings: Analyzed By CAD. Central inner and central outer asymmetric densities on the right CC view are unchanged when comparing against various prior exams. There is no suspicious group of microcalcifications or new suspicious mass in either breast. Overall Assessment: Benign, BI-RAD 2 Management: Screening Mammogram of both breasts in 1 year. See note below in regards to patient's increased 5 year Yaima score. Patient should continue monthly self-breast exams. A clinical breast exam by your physician is recommended on an annual basis. This exam should not preclude additional follow-up of suspicious palpable abnormalities. Note on Yaima scores and lifetime risk: 1. A Yaima score greater than 3% is considered moderate risk. If this is the case, consider specialist referral to assess eligibility for a risk reducing agent. 2. If overall lifetime risk for the development of breast cancer is 20% or higher, the patient may qualify for future screening with alternating mammogram and breast MRI. [facility], , 03/24/2024 2:57 PM. Electronically signed and approved by: Mariaelena Glass M.D. Radiologist
== END | disposition home or self-care (01) ==
LOC: RADMAMWWP 14:15
PROVIDERS: ATTEND Family Medicine
DX: Z12.31 Encounter for screening mammogram for malignant neoplasm of breast (principal); R92.333 Mammographic heterogeneous density, bilateral breasts; Z78.0 Asymptomatic menopausal state; Z80.3 Family history of malignant neoplasm of breast
CPT/HCPCS: 77063; 77067